=== PATIENT | female | born 1980 | race Caucasian/White ===

== ENCOUNTER 2017-10-22 10:28 | Inpatient (IN) | payer MEDICAID ==
[~2017-10-22] VITALS: Ht 170.2 cm; Wt 75.9 kg
[2017-10-22] VITALS (795 sets, daily range): BP systolic 94–116; BP diastolic 55–70; PULSE 82–93; TEMP 98.5–102.2; O2SAT 78–100
[2017-10-22] MEDS ORDERED: SEROQUEL XR400 M1 PO (10:34)
[2017-10-22] MEDS ORDERED: FOLIC ACID 11 MG/TA1 PO (10:34)
[2017-10-22] MEDS ORDERED: ZOLOFT 100MG100 MG PO (10:35)
[2017-10-22] MEDS ORDERED: LAMICTAL 100MG100 MG PO (10:35)
[2017-10-22] MEDS ORDERED: METHOTREXA2.5 MG/TAB PO (10:36)
[2017-10-23] VITALS (949 sets, daily range): BP systolic 99–131; BP diastolic 53–76; PULSE 73–90; TEMP 98–101.1; O2SAT 78–100
[2017-10-23 05:24] LABS: BASO % 0.3 % (0.0-2.0); EOS # 0.1 (0.0-0.7); EOS % 0.5 % (0-4.0); GRAN # 6.7 (1.4-6.5); GRAN % 69.9 % (42.2-75.2); LYMPH # 1.3 (1.2-3.4); LYMPH % 13.8 % (20.0-51.0); MEAN CELL VOLUME 85 fl (80.0-100.0); MEAN CORPUSCULAR HGB CONC 34 g/dl (33.0-37.0); MEAN PLATELET VOLUME 10.5 fl (7.4-10.4); MONO # 1.4 (0.1-0.6); MONO % 14.8 % (1.7-9.3); PLATELET COUNT 225 K/mm3 (130-400); RED BLOOD COUNT 3.65 M/mm3 (4.10-5.30); WHITE BLOOD COUNT 9.6 K/mm3 (4.8-10.8)
[2017-10-23 05:27] LABS: HEMOGLOBIN 10.4 g/dl (12.5-16.0); MEAN CORPUSCULAR HEMOGLOBIN 28 pg (27.0-31.0)
[2017-10-23 05:35] LABS: ADJUSTED CALCIUM 9.3 mg/dL (8.4-10.2); ALBUMIN 2.8 gm/dL (3.5-5.0); BILIRUBIN,TOTAL 0.5 mg/dL (0.0-1.0); CALCIUM 8.3 mg/dL (8.4-10.2); CREATININE, serum 0.72 mg/dL (0.52-1.25); POTASSIUM 3.3 mmol/L (3.4-5.0); TOTAL PROTEIN 5.8 gm/dL (6.4-8.2)
[2017-10-24 03:06] VITALS: BP 121/72; PULSE 77; TEMP 98.7
[2017-10-24 06:36] LABS: MEAN CELL VOLUME 86 fl (80.0-100.0); MEAN CORPUSCULAR HGB CONC 33 g/dl (33.0-37.0); MEAN PLATELET VOLUME 10.9 fl (7.4-10.4); PLATELET COUNT 296 K/mm3 (130-400); RED BLOOD COUNT 3.62 M/mm3 (4.10-5.30); WHITE BLOOD COUNT 9.2 K/mm3 (4.8-10.8)
[2017-10-24 06:37] LABS: HEMATOCRIT 31.1 % (37.0-47.0); HEMOGLOBIN 10.3 g/dl (12.5-16.0); MEAN CORPUSCULAR HEMOGLOBIN 28 pg (27.0-31.0)
[2017-10-24 07:16] VITALS: BP 126/73; PULSE 89; TEMP 98.5
[2017-10-24 07:16] LABS: CALCIUM 8.6 mg/dL (8.4-10.2); CREATININE, serum 0.6 mg/dL (0.52-1.25)
[2017-10-24 11:29] VITALS: BP 107/69; PULSE 77; TEMP 98.4
[2017-10-24 15:35] VITALS: BP 125/76; PULSE 70; TEMP 98.1
[2017-10-24 19:16] VITALS: BP 134/78; PULSE 97; TEMP 99.6
[2017-10-24 23:40] VITALS: BP 130/81; PULSE 59; PULSE 92; TEMP 97.8
[2017-10-25 06:04] VITALS: TEMP 99.8
[2017-10-25 06:46] LABS: HEMOGLOBIN 10.6 g/dl (12.5-16.0); MEAN CELL VOLUME 84 fl (80.0-100.0); MEAN CORPUSCULAR HEMOGLOBIN 28 pg (27.0-31.0); MEAN CORPUSCULAR HGB CONC 33 g/dl (33.0-37.0); MEAN PLATELET VOLUME 9.9 fl (7.4-10.4); PLATELET COUNT 354 K/mm3 (130-400); RED BLOOD COUNT 3.76 M/mm3 (4.10-5.30)
[2017-10-25 06:47] LABS: ADD PATHOLOGY DIFF REVIEW NO; HEMATOCRIT 31.7 % (37.0-47.0)
[2017-10-25 07:19] VITALS: BP 133/77; PULSE 73; TEMP 98.5
[2017-10-25 07:31] LABS: BAND 4 % (0-10); BASOPHIL 1 % (0-2); EOSINOPHIL 1 % (0-4); LYMPHOCYTE 13 % (20.0-51.0); NEUTROPHILS 68 % (42.0-75.2); PLATELET ESTIMATE NORMAL (NORMAL); TOTAL CELLS COUNTED 100
[2017-10-25 07:32] LABS: ANISOCYTOSIS 1+; MICROCYTOSIS 1+
[2017-10-25 07:33] LABS: HYPOCHROMIA 1+
[2017-10-25 11:37] VITALS: BP 121/72; PULSE 95; TEMP 98.9
[2017-10-25 16:45] VITALS: BP 117/66; PULSE 77; TEMP 97.8
[2017-10-25 20:30] VITALS: BP 111/65; PULSE 63; TEMP 98.2
[2017-10-25 23:36] VITALS: BP 119/74; PULSE 80; TEMP 98.6
[2017-10-26 03:02] VITALS: BP 122/71; PULSE 104; TEMP 98.7
[2017-10-26 06:32] VITALS: TEMP 99.9
[2017-10-26 06:39] LABS: MEAN CELL VOLUME 85 fl (80.0-100.0); MEAN CORPUSCULAR HGB CONC 33 g/dl (33.0-37.0); MEAN PLATELET VOLUME 9.8 fl (7.4-10.4); PLATELET COUNT 399 K/mm3 (130-400); RED BLOOD COUNT 3.79 M/mm3 (4.10-5.30); WHITE BLOOD COUNT 12.3 K/mm3 (4.8-10.8)
[2017-10-26 06:45] LABS: ADD PATHOLOGY DIFF REVIEW NO; HEMATOCRIT 32.2 % (37.0-47.0); HEMOGLOBIN 10.6 g/dl (12.5-16.0); MEAN CORPUSCULAR HEMOGLOBIN 28 pg (27.0-31.0)
[2017-10-26 06:58] LABS: ADJUSTED CALCIUM 9.5 mg/dL (8.4-10.2); ALBUMIN 2.9 gm/dL (3.5-5.0); BILIRUBIN,TOTAL 0.4 mg/dL (0.0-1.0); CALCIUM 8.6 mg/dL (8.4-10.2); CREATININE, serum 0.72 mg/dL (0.52-1.25); POTASSIUM 3.7 mmol/L (3.4-5.0); TOTAL PROTEIN 6.2 gm/dL (6.4-8.2)
[2017-10-26 07:33] VITALS: BP 126/72; PULSE 85; TEMP 98.6
[2017-10-26 09:18] LABS: ANISOCYTOSIS 1+; BAND 48 % (0-10); LYMPHOCYTE 16 % (20.0-51.0); NEUTROPHILS 34 % (42.0-75.2); PLATELET ESTIMATE INCREASED (NORMAL); TOTAL CELLS COUNTED 100
[2017-10-26 11:17] VITALS: BP 119/66; PULSE 94; TEMP 97.8
[2017-10-26 12:15] LABS: INR 1.2 (0.8-3.0)
[2017-10-26 15:17] VITALS: BP 101/52; PULSE 82; TEMP 98.3
[2017-10-26 15:37] LABS: PLEURAL FLUID RIGHT SIDE; PLEURAL FLUID APPEARANCE HAZY; PLEURAL FLUID COLOR YELLOW
[2017-10-26 15:39] LABS: PLEURAL FLUID - PMN 16.5 % (0-25); PLEURAL FLUID WBC 1195 /mm3
[2017-10-26 15:46] LABS: GLUCOSE,PLEURAL FLUID 99 mg/dL
[2017-10-26 19:11] VITALS: BP 122/77; PULSE 75; TEMP 98.3
[2017-10-27 00:28] VITALS: BP 117/62; PULSE 78; TEMP 97.9
[2017-10-27 03:48] VITALS: BP 134/74; PULSE 82; TEMP 98.6
[2017-10-27 06:25] LABS: HEMATOCRIT 37.4 % (37.0-47.0); HEMOGLOBIN 12.3 g/dl (12.5-16.0); MEAN CELL VOLUME 85 fl (80.0-100.0); MEAN CORPUSCULAR HEMOGLOBIN 28 pg (27.0-31.0); MEAN CORPUSCULAR HGB CONC 33 g/dl (33.0-37.0); MEAN PLATELET VOLUME 9.8 fl (7.4-10.4); PLATELET COUNT 458 K/mm3 (130-400); WHITE BLOOD COUNT 11.6 K/mm3 (4.8-10.8)
[2017-10-27 06:30] LABS: ADD PATHOLOGY DIFF REVIEW NO
[2017-10-27 06:51] LABS: CALCIUM 9.3 mg/dL (8.4-10.2); CREATININE, serum 0.66 mg/dL (0.52-1.25); MAGNESIUM 2.1 mg/dL (1.6-2.3); POTASSIUM 4.4 mmol/L (3.4-5.0)
[2017-10-27 07:21] VITALS: BP 125/71; PULSE 83; TEMP 98.2
[2017-10-27 07:28] LABS: BAND 8 % (0-10); EOSINOPHIL 1 % (0-4); LYMPHOCYTE 12 % (20.0-51.0); NEUTROPHILS 69 % (42.0-75.2); TOTAL CELLS COUNTED 100
[2017-10-27 07:29] LABS: ANISOCYTOSIS 1+; PLATELET ESTIMATE INCREASED (NORMAL); TARGET CELLS 2+
[2017-10-27] MEDS ORDERED: NORCO 325 MG-51 TAB PO (09:43)
[2017-10-27] MEDS ORDERED: CIPRO 500MG TA500 MG PO (10:12)
[2017-11-01 16:48] LABS: HP-ASPERGILLUS XXX; HP-FUNGUS XXX; HP-FUNGUS ADD XXX
== END 2017-10-27 13:33 | disposition home or self-care (01) | DRG 194 ==
LOC: ICU 10:28 → MEDICAL 10-23 15:56
PROVIDERS: Family Medicine; Internal Medicine Pulmonary Disease; Nurse Practitioner Family; Physician Assistant
PROC: 0W993ZX Drainage of Right Pleural Cavity, Percutaneous Approach, Diagnostic (ICD-10-PCS; principal; 2017-10-26)
DX: J18.9 Pneumonia, unspecified organism (principal); N10 Acute pyelonephritis; J90 Pleural effusion, not elsewhere classified; J95.811 Postprocedural pneumothorax; L40.1 Generalized pustular psoriasis; F42.9 Obsessive-compulsive disorder, unspecified; B96.20 Unspecified Escherichia coli [E. coli] as the cause of diseases classified elsewhere; E87.6 Hypokalemia
CPT/HCPCS: 99223-AI; 99232-AI; 99233-AI; 99239; A9284; J0456; J0696; J1650; J2185; J2405; J7030; J7050; Q9967

== ENCOUNTER → 2017-10-22 | Outpatient (REF) ==
[~2017-10-22] MED LIST: FOLIC ACID 11 MG/TA1 PO; LAMICTAL 100MG100 MG PO; METHOTREXA2.5 MG/TAB PO; SEROQUEL XR400 M1 PO; ZOLOFT 100MG100 MG PO
== END ==
LOC: ZLAB.WCH 10:04
DX: Z01.89 Encounter for other specified special examinations (principal)

== ENCOUNTER → 2020-11-30 | Outpatient (CLI) | payer MEDICAID ==
[~2020-11-30] MED LIST changes: +CIPRO 500MG TA500 MG PO; +NORCO 325 MG-51 TAB PO
== END ==
LOC: MC.RAD 11-02 14:15
DX: Z12.31 Encounter for screening mammogram for malignant neoplasm of breast (principal); Z98.82 Breast implant status

== ENCOUNTER → 2021-03-02 | Outpatient (REF) | LOC: ZLAB.WCH 15:43 | DX: Z01.89 Encounter for other specified special examinations (principal) ==

== ENCOUNTER → 2022-03-07 | Outpatient (CLI) | payer MEDICAID | LOC: MC.RAD 01-17 11:00 | DX: Z12.31 Encounter for screening mammogram for malignant neoplasm of breast (principal); N64.89 Other specified disorders of breast ==

== ENCOUNTER → 2022-03-14 | Outpatient (CLI) | payer MEDICAID | LOC: MC.RAD 07:00 | DX: N64.89 Other specified disorders of breast (principal); Z80.3 Family history of malignant neoplasm of breast ==